=== PATIENT | female | born 1945 | race Caucasian/White ===

== ENCOUNTER 2022-09-20 13:52 | Outpatient (CLI) | payer MEDICARE, BC, SELFPAY | END 2022-09-20 13:53 | disposition home or self-care (01) | LOC: AMB 10-29 19:32 | PROVIDERS: Visit Provider Family Medicine | DX: S49.81XA Other specified injuries of right shoulder and upper arm, initial encounter (principal); W01.0XXA Fall on same level from slipping, tripping and stumbling without subsequent striking against object, initial encounter; Y92.9 Unspecified place or not applicable | CPT/HCPCS: A0425; A0427 ==